=== PATIENT | male | born 1980 | race Caucasian/White ===

== ENCOUNTER 2021-07-07 06:43 | Day surgery (SDC) | payer BC ==
[2021-07-03 09:12] LABS: Absolute Lymphocytes (CBC) 2.8 K/uL (0.7-4.9); Basophils % 0.7 % (0-1.3); Hematocrit 43.4 % (39.6-49.0); Lymphocytes % 33.4 % (15.3-44.8); RBC Red Blood Cell Count 4.86 M/uL (4.33-5.43)
--- NOTE | 2021-07-03 09:15 | RAD REPORT ---
EXAM DESCRIPTION: RAD - Chest Pa And Lat (2 Views) - 07/03/2021 9:11 am CLINICAL HISTORY: PreOp COMPARISON: No comparisons FINDINGS: Lines: None. Lungs: No evidence of edema or pneumonia. Pleural: No significant pleural effusions or pneumothorax. Cardiac: The heart size is within normal limits. Bones: No acute fractures. Other: IMPRESSION: No acute cardiopulmonary disease.
[2021-07-03 09:25] LABS: Protime INR 0.91
[2021-07-03 09:27] LABS: Potassium 4.1 mmol/L (3.5-5.1)
[2021-07-07] MEDS: Ringers Lactate 1,000 ML IV ONE (07:00)
[2021-07-07] MEDS ORDERED: CEFAZOLIN/SWI 2gm 2 GM/20 ML SYR ONE (07:20)
[2021-07-07] MEDS ORDERED: FENTANYL CITR 100 MCG/2 ML ONE (07:42)
[2021-07-07] MEDS ORDERED: propofoL 200 MG/20 ML VIAL IV ONE (07:42)
[2021-07-07] MEDS ORDERED: LIDOCAINE 2% MPF 5 ML VIAL ONE (07:43)
[2021-07-07] MEDS ORDERED: MIDAZOLAM HCL 2 MG/2 ML INJ ONE (07:43)
[2021-07-07] MEDS ORDERED: KETOROLAC 30 MG/ML INJ ONE (07:43)
[2021-07-07] MEDS ORDERED: dexAMETHasone 10 MG/ML VIAL ONE (07:43)
[2021-07-07] MEDS ORDERED: ONDANSETRON 4 MG/2 ML VIAL ONE (07:43)
[2021-07-07] MEDS: BUPIVACAINE 0.25% PF 30 ML VIAL ONE ×2 (08:09→08:48)
[2021-07-07] MEDS: MEPERIDINE HCL 25 MG/ML SYR ONE ×2 (09:02→09:21)
--- NOTE | 2021-07-07 09:23 | P.BOP ---
Preoperative diagnosis: left knee medial meniscus tear Postoperative diagnosis: same, left knee lateral meniscus tear, left knee medial plica Primary procedure: left knee arthroscopic partial medial and lateral meniscectomies Secondary procedure: left knee arthroscopic plica excision Organic Search Lead: NONE,NONE Estimated blood loss: 5 cc Specimen: none Findings: see dictation Anesthesia: General Complications: None Implants: none Fluids & blood products: per anesthesia record; TT: 45 mins @ 300 mmHg Transferred to: Recovery Room Condition: Good
[2021-07-07] MEDS ORDERED: HYDROCODONE/APAP 5/325 MG TAB ONE (10:20)
[2021-07-07 10:39] VITALS: BP 114/75; TEMP 97.3; O2SAT 98
--- NOTE | 2021-07-10 19:10 | OP ---
Date of Procedure: 07/07/2021 Surgeon: Justin Ritchie MD Preoperative Diagnosis: Left knee medial meniscus tear. Postoperative Diagnoses: 1. Left knee medial meniscus tear. 2. Left knee lateral meniscus tear. 3. Left knee medial plica. Procedures Performed: 1. Left knee arthroscopic partial medial meniscectomy. 2. Left knee arthroscopic partial lateral meniscectomy. 3. Left knee arthroscopic medial plica excision. Anesthesia: General LMA. Fluids: Per Anesthesia record. Estimated Blood Loss: 3 cc. Complications: None. Implants: None. Tourniquet Time: 45 minutes at 300 mmHg. Indication For Procedure: He is a 40-year-old male, who presented to clinic with signs and symptoms and MRI findings consistent with left knee medial meniscus tear. I discussed with the patient at length risks and benefits associated with operative and nonoperative treatment. He expressed understanding and elected to proceed with the operative treatment. Description Of Procedure: After informed consent was obtained, the patient was identified in the preoperative holding area. The left lower extremity was marked. The patient was then brought back to the operating room, transferred to the operating table in supine fashion, placed under general LMA anesthesia. The left lower extremity was then prepped and draped in the usual sterile fashion. A time-out was initiated. The correct patient and procedure confirmed and identified. The patient did receive his preoperative prophylactic antibiotics. The left lower extremity was then exsanguinated using an Esmarch. Tourniquet was inflated to 300 mmHg. Standard anteromedial and anterolateral portals were created and arthroscope was brought via the anterolateral portal. Diagnostic arthroscopy was performed. 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 There were no loose bodies found within the medial and lateral gutters. There was noted to be a medial plica that was rubbing on the medial femoral condyle, which was excised using meniscal biter and radiofrequency ablator. Arthroscope was then brought in the medial compartment, where the patient was noted to have a complex tear of the posterior horn of the medial meniscus. Using a meniscal biter and arthroscopic shaver, a partial medial meniscectomy was performed to smooth meniscal borders. The arthroscope was then brought into the intercondylar notch, where the patient was noted have an intact ACL graft as well as PCL. The arthroscope was brought into the lateral compartment, where the patient was noted to have flap tear of the anterior horn of the lateral meniscus as well as the lateral meniscal body. Partial lateral meniscectomy was performed using meniscal biter and arthroscopic shaver to smooth meniscal borders. Arthroscopic instruments were then removed without complication. Wounds were then irrigated thoroughly with normal saline. The skin was approximated using 3-0 Monocryl. Sterile dressings were applied. Tourniquet was let down. The patient was awakened and transferred to PACU in stable condition. Postoperative Plan: The patient will be weightbearing as tolerated. Physical therapy will be consulted to aid with mobilization for post meniscectomy protocol. LILINA/MODL Voice ID: [id number] Report ID: [id number]
== END 2021-07-07 10:35 | disposition home or self-care (01) ==
LOC: OR 06:43
PROVIDERS: ATTEND Orthopaedic Surgery Sports Medicine
PROC: 0SBD4ZZ Excision of Left Knee Joint, Percutaneous Endoscopic Approach (ICD-10-PCS; 2021-07-07)
PROC: 0SBD4ZZ Excision of Left Knee Joint, Percutaneous Endoscopic Approach (ICD-10-PCS; 2021-07-07)
PROC: 0SBD4ZZ Excision of Left Knee Joint, Percutaneous Endoscopic Approach (ICD-10-PCS; principal; 2021-07-07 07:30)
DX: S83.242A Other tear of medial meniscus, current injury, left knee, initial encounter (principal); Z20.822 Contact with and (suspected) exposure to COVID-19
CPT/HCPCS: 93005; 85025; 80048; 36415; 85610; 85730; 71046; 29880; 29875; U0002; J2704; J2250; J3010; J1100; J2175; J0690; J7120; J2405